=== PATIENT | male | born 1940 | race Caucasian/White ===

== ENCOUNTER → 2023-07-20 | Day surgery (SDC) | payer OTHER ==
[2023-07-18 10:31] LABS: Absolute Lymphocytes (CBC) 1.6 K/uL (0.7-4.9); Hematocrit 46.9 % (39.6-49.0); Lymphocytes % 23.3 % (15.3-44.8); MCV 94.2 fL (80-100); MPV 8.8 fL (7.6-11.3); Platelets 206 thou/uL (152-406); RBC Red Blood Cell Count 4.98 M/uL (4.33-5.43)
[2023-07-18 10:39] LABS: Protime INR 1.07
[2023-07-18 10:44] LABS: Potassium 4.9 mEq/L (3.5-5.1)
--- NOTE | 2023-07-18 11:56 | RAD REPORT ---
EXAM DESCRIPTION: Justina Pa And Lat (2 Views)07/18/2023 10:17 am CLINICAL HISTORY: pre op pending left heart catheterization/hyperten COMPARISON: No comparisons TECHNIQUE: Portable AP view of the chest. FINDINGS: Bilateral basal predominant central interstitial prominence. Crescentic Right basilar opac ity, favoring atelectasis, versus diaphragmatic eventration. No pneumothorax or effusion. Mild cardi omegaly. Tortuosity of the thoracic aorta. IMPRESSION: Bilateral basal predominant central interstitial from its, which may be chronic or relat ed to central congestion.
--- NOTE | 2023-07-18 17:33 | EKG ---
Test Date: 2023-07-18 Test Time: 10:57:43 Die Trimmer: KRIS MEASUREMENT RESULTS: Intervals: Rate: 68 FL: 214 QRSD: 104 QT: 408 QTc: 433 Doole: P: 71 FL: 214 QRS: -12 T: 78 INTERPRETIVE STATEMENTS: Sinus rhythm with 1st degree AV block Minimal voltage criteria for LVH, may be normal variant Borderline ECG No previous ECG available for comparison Electronically Signed On 07-18-23 17:32:55 [employer] by Sunil Russell
[~2023-07-20] MED LIST: ASPIRIN 325 MG TAB ONE; ATROPINE SULF 1 MG/10 ML SYR IV ONE; CLOPIDOGREL 75 MG TABLET ONE; FENTANYL CITR 100 MCG/2 ML ONE; HEPA 1000U/500MLS 2,000 UNIT/1,000 ML BAG IV ONE; HEPARIN 10,000 UNIT/10 ML VIAL IV ONE; HEPARIN 5000 UNIT/ML 1 ML VIAL ONE; LIDOCAINE 1% 20 ML MDV ONE; MIDAZOLAM HCL 2 MG/2 ML INJ ONE; NA CHLORIDE 0.9% 500 ML ONE; TICAGRELOR 90 MG TABLET PO ONE; VERAPAMIL HCL 10 MG/4 ML VIAL IV ONE
--- NOTE | 2023-07-20 09:01 | OP ---
Date of Procedure: 07/20/2023 Surgeon: MOE MACK Procedures Performed: 1.Selective coronary angiogram. 2.Left heart catheterization. Indication: Unstable angina, abnormal stress test. Access: Right radial artery 6-[place] closed with TR band. Complications: None. Bleeding: Less than 20 mL. Description Of Procedure: After risks, benefits, and alternatives were explained, patient was in agr eement with the procedure and signed informed consent. Patient was brought into the cardiac catheter ization laboratory, prepped and draped in sterile fashion. Then, I accessed radial artery using pedi atric micropuncture kit and placed 6-[place] Slender sheath. Took a 5-[place] 4.0 catheter over J-wire into the aortic root, engaged the RCA, and then exchanged for 6-[place] JL3.5 catheter and enga ged the left main, took standard views. Catheter was pushed over the wire into the LV, measured the LVEDP. Pullback did not record any gradient and then removed the catheter and sheath and placed TR b and with good hemostasis. Findings: 1.Left main: Very large and normal. 2.LAD: Large, normal. Normal diagonal branches. The LAD splits towards the mid segment into dual LAD system and both were normal. 3.Left circumflex: Very large and dominant and normal. 4.RCA: Small, nondominant, and normal. 5.LVEDP is elevated at 24 mmHg. Conclusion: 1.Normal coronary arteries. 2.Elevated LVEDP due to diastolic heart failure. Recommendation: Medical management. /RAMON Voice ID: [id number] Report ID: [id number]
[2023-07-20 10:26] VITALS: BP 107/58; O2SAT 97
== END ==
LOC: CCL 07:00
PROVIDERS: ATTEND Internal Medicine
DX: I20.0 Unstable angina (principal); I35.1 Nonrheumatic aortic (valve) insufficiency; I71.21 Aneurysm of the ascending aorta, without rupture; I11.0 Hypertensive heart disease with heart failure; I50.30 Unspecified diastolic (congestive) heart failure; I44.0 Atrioventricular block, first degree; E78.5 Hyperlipidemia, unspecified; Z87.891 Personal history of nicotine dependence; Z79.899 Other long term (current) drug therapy; Z82.49 Family history of ischemic heart disease and other diseases of the circulatory system
CPT/HCPCS: 93005; 85025; 80048; 36415; 83721; 85610; 85730; 71046; 93458; 76937; C1893; Q9966; J1644; J2001; J7040; J0461; J2250; J3010